=== PATIENT | female | born 2000 | race Caucasian/White ===

== ENCOUNTER 2022-11-19 17:41 | Emergency (ER) | payer SELFPAY ==
[~2022-11-19] VITALS: Ht 167.6 cm; Wt 77.1 kg
[2022-11-19 17:46] VITALS: BP_SYST 158
--- NOTE | 2022-11-19 17:53 | NUR ---
PT TRIAGED AND MAINTAINED IN AMBULANCE [facility] UNTIL BED AVAILABLE.
--- NOTE | 2022-11-19 18:12 | NUR ---
Note trent in ED - 11/19/22 at 1832 by [email or web address] Placed in room 03 . Placed on bus monitor, blood pressure machine and pulse oximeter. To gown for exam. Side rails up. Report given to CHRIS CYR
--- NOTE | 2022-11-19 18:35 | NUR ---
Placed in room 07 . Placed on telemetry monitor, blood pressure machine and pulse oximeter.
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
--- NOTE | 2022-11-19 18:38 | NUR ---
ER Dr. ARSHAD at bedside examining patient.
[2022-11-19 18:41] VITALS: BP_SYST 137
--- NOTE | 2022-11-19 18:41 | NUR ---
Patient given written and verbal discharge instructions and verbalizes understanding. ER MD discussed with patient the results and treatment provided. Patient in stable condition. ID arm band removed. IV catheter removed intact and dressing applied, no active bleeding. NO RX GIVEN. Patient educated on pain management and to follow up with PMD. Pain Scale 0/10 Opportunity for questions provided and answered. Medication side effect fact sheet provided.
== END 2022-11-19 18:41 ==
LOC: SED 17:41
DX: Z02.89 Encounter for other administrative examinations (principal); F10.90 Alcohol use, unspecified, uncomplicated; F15.90 Other stimulant use, unspecified, uncomplicated; Z79.899 Other long term (current) drug therapy; Y90.6 Blood alcohol level of 120-199 mg/100 ml
CPT/HCPCS: 99283